=== PATIENT | female | born 1995 | race Hispanic/Latino ===

== ENCOUNTER 2018-12-13 23:52 | Emergency (ER) | payer MEDICAID, OTHER ==
[2018-12-14] MEDS ORDERED: ACETAMINOPHEN 325 MG TAB ONE ×2 (00:44→00:46)
== END 2018-12-14 01:59 | disposition home or self-care (01) ==
LOC: EDH 23:52
DX: J03.90 Acute tonsillitis, unspecified (principal); R07.0 Pain in throat